=== PATIENT | male | born 1985 | race Caucasian/White ===

== ENCOUNTER 2018-06-20 01:42 | Emergency (ER) | payer BC, OTHER ==
[2018-06-20] MEDS: LORAZEPAM 1 MG TAB PO (02:25)
== END 2018-06-20 02:25 | disposition home or self-care (01) ==
LOC: FTE 01:42
DX: F41.9 Anxiety disorder, unspecified (principal); R00.0 Tachycardia, unspecified; Z91.010 Allergy to peanuts
CPT/HCPCS: 93005; 99283-25